=== PATIENT | male | born 1930 | race Caucasian/White ===

== ENCOUNTER 2016-09-10 17:38 | Emergency (ER) | payer MEDICARE, OTHER ==
[~2016-09-10] VITALS: Ht 177.8 cm; Wt 61.4 kg
[~2016-09-10 17:38] MED LIST: ALBU8.5H2 INHALATION; ALFU10TA11 PO; ASPI-973 PO; ATOR80TA PO; CALC500T9 PO; CHOL100045 PO; CIPR-231 PO; CYAN10008 PO; DOCU250C2 PO; DUTA0.5C2 PO; FLUT9.9S NASAL; LISI-571 PO; LORA10CA PO; MELA1TAB11 PO; NITR0.4T SL; OXYC1TAB24 PO; POLY17PO6 PO; SENN-133 PO; TRAM50TA2 PO
[2016-09-10 17:53] VITALS: BP 133/85; PULSE 92; RESP 34; O2SAT 94
--- NOTE | 2016-09-10 18:43 | ED.REPORT ---
HPI-URI / Cough / Cold Date of Service Sep 10, 2016 ED Provider: Dr. Lyons An 85 year old male with a history of COPD, HTN, and hypercholesterolemia presents to the ED complaining of non-productive cough and mild fever onset a few days ago. He thinks that these are pneumonia symptoms. He denies any pain, chills, or leg swelling. He has been using his inhaler at home. Nursing Notes Stated Complaint: SOB, CHEST CONJESTION, FEVER, FALLS Chief Complaint: Respiratory Complaints Nursing Notes Reviewed: Yes Allergies: Coded Allergies: Penicillins (Verified Allergy, Severe, SWELLING, 03/27/16) hydrocodone (Verified Allergy, Severe, RASH,TAKES PERCOCET, 03/27/16) terazosin (Verified Allergy, Severe, HIVES, 03/27/16) finasteride (Verified Allergy, Unknown, UNKNOWN, 03/27/16) Sulfa (Sulfonamide Antibiotics) (Verified Adverse Reaction, Severe, WEAKNESS (HAS TAKEN MACROBID OK), 03/27/16) Scheduled Alfuzosin ER (Alfuzosin ER) 10 Mg Tab.er.24h 10 MG PO DAILY Aspirin (Aspirin) 81 Mg Tablet 81 MG PO DAILY Atorvastatin (Lipitor) 80 Mg Tablet 80 MG PO DAILY Cholecalciferol (Vitamin D3) (Vitamin D) 1,000 Unit Capsule 1,000 UNIT PO DAILY Ciprofloxacin (Cipro) 500 Mg Tablet 500 MG PO BID Cyanocobalamin (Vitamin B-12) (Vitamin B-12) 1,000 Mcg Tablet 1,000 MCG PO DAILY Dutasteride (Avodart) 0.5 Mg Capsule 0.5 MG PO DAILY Fluticasone Propionate (Flonase Allergy Relief) 50 Mcg/Actuation Blossom.susp 1 SPRAY NASAL BID Lisinopril (Lisinopril) 5 Mg Tablet 5 MG PO DAILY Loratadine (Claritin) 10 Mg Capsule 10 MG PO DAILY Melatonin/Pyridoxine (Melatonin 3 mg Tablet) 1 Each Tablet 1 EACH PO HS Polyethylene Glycol 3350 (Miralax) 17 Gm Powd.pack 17 GM PO DAILY Scheduled PRN Albuterol HFA (Proair HFA) 8.5 Gm Hfa.aer.ad 1 PUFFS INHALATION Q4H PRN PRN PRN Calcium Carbonate (Tums) 500 Mg Tab.chew 500 MG PO Q4hrs prn PRN PRN For Dyspepsia or Heartburn Docusate Sodium (Docusate Sodium) 250 Mg Capsule 250 MG PO DAILY PRN PRN For Constipation Nitroglycerin SL (Nitrostat) 0.4 Mg Tab.subl 0.4 MG SL Q5MIN PRN PRN UNSTABLE ANGINA Sennosides (Senna) 8.6 Mg Tablet 17.2 MG PO DAILY PRN PRN For Constipation Tramadol (Tramadol) 50 Mg Tablet 50 MG PO Q6H PRN PRN For Pain oxyCODONE-Acetaminophen 5-325 mg (oxyCODONE-Acetaminophen 5-325 mg) 1 Each Tablet 1 TAB PO DAILY PRN PRN For Pain General Time Seen by MD: 18:42 Chief Complaint Cough, non-productive Hx Obtained From: Patient Arrived By: Walk-in Onset Occurred: 3 days ago (A few days ago) Symptom Duration: Since onset Severity: Current: Moderate Severity: Maximum: Moderate Recent Healthcare: No recent doctor visit Similar Sx Previous: No Past Medical History Past Medical History HTN Hyperlipidemia Hx bladder cancer s/p transurethral resection of bladder tumors on 01/16/16 BPH Chronic back pain Borderline Diabetes AAA s/p repair TAA, current stable 4.3 cm Left popliteal aneurysm s/p repair CAD GERD Hx of Garcia's esophagus History of diverticulitis Osteopenia with vertebral compression fracture in 2010 COPD, has inhaler Valvular heart disease (mild MR, TR, mild ) Occasional PVCs Denies Emphysema Past Surgical History CABG Appendectomy Abdominal aortic aneurysm repair Bladder tumor removal Cystoscopy Family History Noncontributory Smoking History Former Smoker (has not smoked for 40 years) Social History Lives at his home in [place]. Alcohol Use: "Social" Other Social History: Good social support, Local resident Ambulatory Status Independent Review of Systems Review of Systems Note: Denies any pain. Constitutional: Reports: Fever (mild), Denies: Chills Respiratory: Reports: Non-productive cough Complete sys rev & neg: except as marked. Musculoskeletal: Denies: Extremity pain, Extremity swelling (denies leg swelling) Physical Exam Initial Vital Signs Vital Signs (First) Date Time Temp Pulse Resp B/P Pulse Ox O2 Delivery O2 Flow Rate FiO2 09/10/16 17:53 36.6 92 34 133/85 94 Room Air Initial VS: Reviewed General/Constitutional: Awake, Alert, No acute distress ENT: Atraumatic, Airway patent, Mucous membranes moist Diminished Breath Sounds: Positive: Decreased bilateral Squeaky wheeze in left chest. Head / Eyes: Atraumatic, Normocephalic, PERRL, EOMI Neck: Atraumatic, Supple, Non-tender, No JVD Cardiovascular: Heart rate NL, Regular rhythm, Heart sounds NL, No murmurs Abdomen: Soft, Non-tender Skin: Atraumatic, Color NL, Warm, Dry Neurologic: Oriented X3, Speech NL Upper Extremity / MS: No swelling, No edema Limbs are thin, not a lot of muscle mass. Lower Extremity / Pelvis / MS: No swelling, No edema Interpretation & Diagnostics Lab Results Interpretation Result Diagram: 09/10/16 1852 09/10/16 1852 Test 09/10/16 18:52 09/10/16 21:45 White Blood Count 2.8th/mm3 (3.8-10.1) Red Blood Count 3.88mil/mm3 (4.40-5.80) Hemoglobin 12.2g/dL (13.8-17.2) Hematocrit 38.5% (41.0-50.0) Mean Corpuscular Volume 99.2fL (81-100) Mean Corpuscular Hemoglobin 31.4pg (27.0-35.0) Mean Corpuscular Hemoglobin Concent 31.7% (32.0-37.0) Red Cell Distribution Width 14.4% (12.3-15.4) Platelet Count 122bil/L (150-400) Neutrophils (%) (Auto) 57.7% (40-74) Lymphocytes (%) (Auto) 23.1% (14-46) Monocytes (%) (Auto) 18.5% (4-12) Eosinophils (%) (Auto) 0.7% (0-5) Basophils (%) (Auto) 0% (0-3) D-Dimer 5.49mg/L FEU (<0.50) Sodium Level 140mEq/L (134-144) Potassium Level 4.7mEq/L (3.5-5.2) Chloride Level 101mEq/L (97-108) Carbon Dioxide Level 26mmol/L (18-29) Blood Urea Nitrogen 25mg/dL (8-27) Creatinine 0.76mg/dL (0.76-1.27) Estimat Glomerular Filtration Rate 103mL/min (>59) Glucose Level 109mg/dL (60-99) Lactic Acid Level 1.1mmol/L (0.4-2.0) Calcium Level 9.7mg/dL (8.5-10.1) Total Bilirubin 0.5mg/dL (0.0-1.2) Aspartate Amino Transf (AST/SGOT) 18U/L (0-50) Alanine Aminotransferase (ALT/SGPT) 9U/L (0-44) Alkaline Phosphatase 51U/L (25-160) Total Protein 7.1g/dL (6.4-8.4) Albumin 4.1g/dL (3.4-5.0) Troponin T 0.010ug/L (0.0-0.011) Lab Results Interpretation: PROCEDURE: CT ANGIO CHEST PULMONARY EMBOLISM ([id number]) IMPRESSION: No evidence of pulmonary embolism. Diffuse scarring/atelectasis. No acute consolidation. Additional chronic and incidental findings as above Dictated by: Anibal Jackson M.D. on 09/10/2016 at 20:56 Approved by: Anibal Jackson M.D. on 09/10/2016 at 21:01 ECG Interpretation ECG Interpretation: Rate is 86. Sinus Rhythm. RBBB and LAFB Time: 19:25 Interpreted by: ED physician X-Ray Chest Interpretation Chest Xray Interpretation: IMPRESSION: No acute disease Dictated by: Anibal Jackson M.D. on 09/10/2016 at 19:28 Approved by: Anibal Jackson M.D. on 09/10/2016 at 19:33 View: Portable, 1 view Interpretation / Wet Read by: Interpret - Radiologist Re-Eval/Medical Decision Med Decision/Clinical Course 85-year-old male history of COPD presents with fever and cough. He is found to have symptoms consistent with mild COPD exacerbation. Myocardial infarction was ruled out. Pneumonia was ruled out. Pulmonary embolus was ruled out. History with steroids, antibiotics and DuoNeb. He felt much better. His pneumonia severity index score is commensurate with outpatient treatment. I will placement twice daily doxycycline short course of prednisone. His white count initial mild pancytopenia. This most commonly seen with a viral infection however I do think it prudent to place him on antibiotics and close outpatient follow-up. Source of Hx: Old records Re-Evaluation/Progress #1: Time of Eval: 20:55 Re-Evaluation/Progress Note: Evaluated patient CT. Signs of Bronchitis. Awaiting official report. Re-Evaluation/Progress #2: Time of Eval: 22:03 Re-Evaluation/Progress Note: Rechecked patient, explained test results, diagnosis, and plan for discharge. Patient understands and agrees with the plan. All questions addressed. Counseled Regarding: Diagnosis, Lab results, Need for follow-up, When/why to return to ED Discharge & Departure Impression: Primary Impression: Chronic obstructive bronchitis Disposition: Home Discharge Condition All VS Reviewed: Yes Condition: Stable Patient Instructions: Acute Bronchitis (ED), Chronic Obstructive Pulmonary Disease (ED) Additional Instructions: The CAT scan did not show a blood clot. The 2 heart blood tests were normal. I suspect that you aer suffering with bronchitis related to COPD. Use your l inhalers as instructed. Take doxycycline twice daily for 7 days. Take prednisone daily for 3 days. Call your doctor tomorrow to set up a follow-up. Do not hesitate to return if any problems or any new or worsening symptoms. Referrals: Robert Castañeda MD (PCP) [place] Attestation Portions of this note were transcribed by Anshu Downing. I, Dr. Lyons personally performed the history, physical exam and medical decision-making; I reviewed and confirmed the accuracy of the information in the transcribed note. Signed by: Zeenat Razo, 09/10/2016, [id number]. copies to: Robert Castañeda MD, Todd P DO Sep 10, 2016 18:43 Anshu Downing Sep 10, 2016 19:18
[2016-09-10 19:04] LABS: BASOPHILS % (AUTO) 0 % (0-3); EOSINOPHILS % (AUTO) 0.7 % (0-5); MONOCYTES % (AUTO) 18.5 % (4-12); Mean Corpuscular Hemoglobin 31.4 pg (27.0-35.0); Mean Corpuscular Volume 99.2 fL (81-100); NEUTROPHILS % (AUTO) 57.7 % (40-74); Platelet Count 122 bil/L (150-400)
[2016-09-10] MEDS ORDERED: MethylprednisoLONE Sodium Succinate 62.5 mg/mL 2 mL Inj IVPUSH ONE (19:35)
[2016-09-10] MEDS ORDERED: Albuterol-Ipratropium 3 mL Inhalation Solution NEB ONE (19:35)
[2016-09-10] MEDS ORDERED: cefTRIAXone Inj 2,000 MG in Dextrose 5% Minibag Plus 50 ML IV ONE (19:35)
--- NOTE | 2016-09-10 19:35 | DRSVH ---
PROCEDURE: X-RAY CHEST ONE VIEW, PORTABLE ([id number]) INDICATIONS: sob TECHNIQUE: One view of the chest was acquired. COMPARISON: [facility], CR, XR CHEST 1VW (PORTABLE), 01/22/2016, 13:34. FINDINGS: Surgical changes and devices: Sternotomy wires and CABG clips Lungs and pleura: No pleural effusions or pneumothorax. Lungs are clear. Mediastinum: Mediastinal contours appear normal. Heart size is normal. Bones and chest wall: No suspicious bony lesions. Overlying soft tissues appear unremarkable. IMPRESSION: No acute disease Dictated by: Anibal Jackson M.D. on 09/10/2016 at 19:28 Approved by: Anibal Jackson M.D. on 09/10/2016 at 19:33
[2016-09-10 19:43] LABS: TROPONIN T < 0.010 ug/L (0.0-0.011)
[2016-09-10 19:47] VITALS: PULSE 88; RESP 20; O2SAT 92
--- NOTE | 2016-09-10 21:02 | DRSVH ---
PROCEDURE: CT ANGIO CHEST PULMONARY EMBOLISM ([id number]) INDICATIONS: dyspnea, elevated ddimer, normal xray TECHNIQUE: After the administration of intravenous contrast, 2 mm thick sections acquired from the pulmonary api vladimir to the posterior costophrenic angles. 3-dimensional maximum intensity projection (MIP) coronal a nd sagittal reformats were then acquired through the thorax. For radiation dose reduction, the follo wing was used: automated exposure control, adjustment of mA and/or kV according to patient size. COMPARISON: [facility], CT, CT ABD PELVIS W&WO CON IVP, 10/30/2015, 12:03. FINDINGS: Image quality: Excellent. Pulmonary arteries: Pulmonary arteries are normal in size, and demonstrate no intraluminal filling d efects to suggest central pulmonary embolism. Lungs and pleura: Lungs are clear. There is diffuse scarring/atelectasis. No pleural effusions or p neumothorax. Central and peripheral airways are patent. Mediastinum: Heart size is normal, without pericardial effusion. No mediastinal or hilar adenopathy . Partially visualized abdominal aortic aneurysm (as better seen on prior study dated 10/30/15). Esop hagus is normal in caliber, without hiatal hernia. Bones and chest wall: No suspicious bony lesions. Unchanged upper lumbar compression fracture Thyroi d gland unremarkable. No axillary or supraclavicular adenopathy. Abdomen: Nonspecific 5 mm hypodensity seen in the dome of the liver, too small to characterize and te chnically indeterminate. IMPRESSION: No evidence of pulmonary embolism. Diffuse scarring/atelectasis. No acute consolidation. Additional chronic and incidental findings as above Dictated by: Anibal Jackson M.D. on 09/10/2016 at 20:56 Approved by: Anibal Jackson M.D. on 09/10/2016 at 21:01
[2016-09-10 23:05] VITALS: BP 145/89; RESP 18; O2SAT 93
== END 2016-09-10 23:06 | disposition home or self-care (01) ==
LOC: SED 17:38
DX: J44.9 Chronic obstructive pulmonary disease, unspecified (principal); I11.9 Hypertensive heart disease without heart failure; I25.10 Atherosclerotic heart disease of native coronary artery without angina pectoris; E78.5 Hyperlipidemia, unspecified; K21.9 Gastro-esophageal reflux disease without esophagitis; Z79.82 Long term (current) use of aspirin; Z95.1 Presence of aortocoronary bypass graft; Z87.891 Personal history of nicotine dependence; Z88.0 Allergy status to penicillin; Z88.2 Allergy status to sulfonamides; Z88.5 Allergy status to narcotic agent; Z88.8 Allergy status to other drugs, medicaments and biological substances
CPT/HCPCS: 71010; 71275; 80053; 83605; 84484; 85025; 85378; 87040; 93005; 94664; 96365; 96375; 99285; J0696; J2930; J7620; Q9967